=== PATIENT | female | born 1965 | race Caucasian/White ===

== ENCOUNTER 2019-07-31 11:50 | Emergency (ER) | payer OTHER ==
[2019-07-31 12:46] VITALS: BP 119/89
--- NOTE | 2019-07-31 13:02 | UC ---
Throat Pain/Nasal Timmy HPI - HPI Summary HPI Summary: Patient presents to urgent care with 7 days of progressive sinus congestion sore throat cough. Patient states his been productive but she's been swollen. No nausea vomiting. Patient states she feels tired. Patient denies sick contacts. Patient states she is not immunocompromised. Patient has taken over- the-counter going to for symptom with little improvement. Patient's does not feel short of breath. Patient states sometimes she feels wheezing when she is coughing. Patient's medications reviewed this visit. Patient quit smoking in 2014 be using a cigarette. - History of Current Complaint Chief Complaint: UCRespiratory Stated Complaint: HEAD/CHEST CONGESTION Time Seen by Provider: 07/31/19 13:01 Hx Obtained From: Patient Onset/Duration: Gradual Onset Pain Intensity: 4 - Allergies/Home Medications Allergies/Adverse Reactions: Allergies Allergy/AdvReac Type Severity Reaction Status Date / Time No Known Allergies Allergy Verified 07/31/19 12:32 Home Medications: Home Medications Bupropion HBr [Aplenzin] 522 mg PO DAILY 07/31/19 [History Confirmed 07/31/19] Dextromethorphan-Guaifenesin [Dextromethorphan/Guaifene 10-100 mg/5Ml] 1 cap PO QID 07/31/19 [History Confirmed 07/31/19] Estradiol VAG CM (NF) [Estrace VAG CM (NF)] 1 applic VAGINAL DAILY 07/31/19 [ History Confirmed 07/31/19] FLUoxetine CAP* [Prozac CAP*] 20 mg PO QID 07/31/19 [History Confirmed 07/31/19] Gabapentin 800 mg PO QID 07/31/19 [History Confirmed 07/31/19] LORazepam [Ativan 1 MG TAB] 1 mg PO BID 07/31/19 [History Confirmed 07/31/19] Pseudoephedrine HCl [Sudafed] 60 mg PO QID 07/31/19 [History Confirmed 07/31/19] cloNIDine HCl [Catapres 0.1 MG TAB] 0.1 mg PO DAILY 07/31/19 [History Confirmed 07/31/19] hydrOXYzine HCl [Hydroxyzine HCl] 50 mg PO QID 07/31/19 [History Confirmed 07/31] traZODone TAB* [Desyrel TAB*] 50 mg PO DAILY 07/31/19 [History Confirmed ] PMH/Surg Hx/FS Hx/Imm Hx Previously Healthy: Yes Psychological History: Depression - Surgical History Surgical History: Yes Surgery Procedure, Year, and Place: gastric bypass 1995, hernia repair x2, tonsil and adnoids - Family History Known Family History: Positive: Non-Contributory - Social History Lives: With Family Alcohol Use: None Alcohol Amount: 5 years ago Substance Use Type: None Substance Use Comment - Amount & Last Used: 5 years ago Smoking Status (MU): Former Smoker Have You Smoked in the Last Year: No Review of Systems All Other Systems Reviewed And Are Negative: Yes Constitutional: Positive: Fatigue Skin: Positive: Negative Eyes: Positive: Negative ENT: Positive: Sore Throat, Nasal Discharge, Sinus Congestion Respiratory: Positive: Cough, Other Gastrointestinal: Positive: Negative Genitourinary: Positive: Negative - Expiratory wheeze Is Patient Immunocompromised?: No Physical Exam - Summary Physical Exam Summary: Vital Signs Reviewed: Yes A+Ox3, no distress, tired appearing Eyes: Conjunctiva Clear, ANTOINE. EOM intact and full ENT: Hearing grossly normal TM x 2 clear, turbinates inflammed, + PND, mmoist , uvula midline, no exudate, no erythema Neck: Positive: Supple Resp: no acessory muscles, speaking full, easy sentences. Coarse, intermittent cough. ex wheeze. no rhonchi Cardiovascular: RRR nl s1, s2 no m/r CBT <2 sec abd soft + BS nt/nd no guarding, no distension Musculoskeletal Exam: TAYLOR x 4 without difficulty Strength Intact, ROM Intact Neurological: Positive: Alert, + sensation throughout Psychological: Positive: Normal Response To examiner Skin: Positive: no rash, no ecchymosis Vital Signs: Initial Vital Signs Temp 96.9 F 07/31/19 12:41 Pulse 81 07/31/19 12:41 Resp 20 07/31/19 12:41 BP 119/89 07/31/19 12:41 Pulse Ox 97 07/31/19 12:41 Diagnostics - Radiology No standard instances Radiology Interpretation Completed By: Radiologist - Patient Name: RANDALL AVENDAÑO Medical Record#: [id number] Ordering Physician: Paloma Moon MD Acct.#: [id number] : 1965 Age: 53 Sex: F Location: [facility] Exam Date: 07/31/19 1313 ADM Status: REG ER Order Information: CHEST PA & LAT 2 VWS Accession Number: [id number] CPT: 91750 INDICATION: Cough, right upper lobe rhonchi COMPARISON: There are no relevant prior studies available for comparison. TECHNIQUE: Dual-energy PA and lateral views of the chest were obtained. FINDINGS: The lungs are clear. There is no pleural effusion. The cardiomediastinal silhouette is within normal limits. A 2 subcentimeter calculi projects in the region of the left kidney. Osseous structures are unremarkable. IMPRESSION: No acute cardiopulmonary process by radiograph. __ <Electronically signed by Dimitri Murillo MD in OV> 07/31/19 1338 Dictated By: Dimitri Murillo MD Dictated Date/Time: 07/31/19 133 Transcribed Date/Time: 07/31/19 133 Copy to: CC:Paloma Moon MD; Ирина Mooney MD Imaging - [facility] Imaging [facility] [place] [address] [place] [address] ph ([phone]) ph ([phone]) ph ([phone]) This report is only to be considered final once signed by the Provider(s) as displayed in the "<Electronically Signed by >" field (s). Absence of a signature indicates the report is in a draft status and still needs to be finalized. In the event this document was created by someone other than the signing Provider, the individual initiating the document will be listed in the "Entered by:" or "Dictated by:" disla. 1 of 1 Re-Evaluation - Re-Evaluation First Eval Change: Improved Comment: improved after neb. no wheezing. will rX abx, mdi. secretion precaution. return precaution. pt comfortable and in agreement with plan Throat Pain/Nasal Course/Dx - Course Course Of Treatment: Patient presents to urgent care with progressive congestion sinus congestion cough for the last 5 days. Patient states she feels very fatigued. Patient's taken of the counter medication without relief. Patient hasn't sick contacts. On exam vital signs are stable. Patient does have a coarse cough with expiratory wheeze. Patient speaking full easy sentences. Patient's exam as well as rhinosinusitis. We'll do a chest x-ray as well as give a DuoNeb and reassessed. Patient comfortable agreement with plan. - Differential Dx/Diagnosis Provider Diagnosis: Acute bronchitis, Rhinosinusitis Discharge ED - Sign-Out/Discharge Documenting (check all that apply): Patient Departure All imaging exams completed and their final reports reviewed: No Studies - Discharge Plan Condition: Stable Disposition: HOME Prescriptions: Albuterol HFA INHALER* [Ventolin HFA Inhaler*] 2 puff INH Q4H PRN #1 mdi PRN Reason: wheeze Amoxicillin/Clavulanate TAB* [Augmentin TAB 875*] 875 mg PO BID #20 tab Patient Education Materials: Acute Bronchitis (ED), Rhinosinusitis (ED) Referrals: Jesica CONTRERAS,Ирина Shah [Primary Care Provider] - Additional Instructions: - Take antibiotics exactly as prescribed until gone -Use your albuterol puffer - 2 puffs ever 4-6 hours for the next 3 days - then as needed -Okay to alternate ibuprofen (Advil, Motrin)600mg and Tylenol (acetaminophen) every 3 hours for pain or fever. Take with food. Do NOT take for more than 4-5 days. -Stay well hydrated - avoid excess caffeine and all alcohol - eat regular, healthy meals - get plenty of restful sleep - okay to take over the counter cough medication and decongestant These infections are spread by oral secretions. Do not share eating or drinking utensils. Frequent hand washing is important. Clean items that may get your secretions on them such as cell phones, ipads, computer mouse, television remotes. Once you have been on antbiotics for 2 days, change your pillowcase and your toothbrush -Contact your doctor to arrange a follow-up appointment this week. Call your doctor, return here or go to the emergency department with any questions or concerns - Billing Disposition and Condition Condition: STABLE Disposition: Home
[2019-07-31] MEDS ORDERED: Albuterol/Ipratropium NEB.SOL* Albuterol 2.5 MG/Ipratropium 0.5 MG 3 ML INH ONE (13:13)
== END 2019-07-31 14:04 | disposition home or self-care (01) ==
LOC: UCCORT 11:50
DX: J20.9 Acute bronchitis, unspecified (principal); J32.9 Chronic sinusitis, unspecified; Z87.891 Personal history of nicotine dependence; F32.9 Major depressive disorder, single episode, unspecified
CPT/HCPCS: 71046; 99202; A9270-GY; G0463

== ENCOUNTER 2019-08-04 12:49 | Emergency (ER) | payer OTHER ==
[2019-08-04 13:40] VITALS: BP 118/78
--- NOTE | 2019-08-04 13:59 | UC ---
Throat Pain/Nasal Timmy HPI - HPI Summary HPI Summary: 53-year-old female who was diagnosed with sinusitis on July 31 and started on Augmentin. She states she continues to have sinus pressure and has not improved. She's also using albuterol inhaler for bronchitis. She denies any fever or chills. - History of Current Complaint Chief Complaint: UCRespiratory Stated Complaint: COUGH/PELAEZ Time Seen by Provider: 08/04/19 13:23 Hx Obtained From: Patient ?: No Onset/Duration: Gradual Onset Severity: Moderate Pain Intensity: 7 Cough: None - Moist cough. Associated Signs & Symptoms: Positive: Wheezing, Sinus Discomfort, Nasal Discharge - Allergies/Home Medications Allergies/Adverse Reactions: Allergies Allergy/AdvReac Type Severity Reaction Status Date / Time No Known Allergies Allergy Verified 08/04/19 13:26 Home Medications: Home Medications Acetaminophen TAB* [Tylenol TAB*] 650 mg PO Q4H PRN 08/04/19 [History Confirmed 08/04/19] Bupropion HBr [Aplenzin] 348 mg PO 08/04/19 [History] PMH/Surg Hx/FS Hx/Imm Hx - Additional Past Medical History Additional PMH: Alopecia and gastric bypass. Previously Healthy: Yes - Surgical History Surgical History: Yes Surgery Procedure, Year, and Place: gastric bypass 1995, hernia repair x2, tonsil and adnoids - Family History Known Family History: Positive: Non-Contributory - Social History Alcohol Use: None Alcohol Amount: 5 years ago Substance Use Type: None Substance Use Comment - Amount & Last Used: 5 years ago Smoking Status (MU): Former Smoker Have You Smoked in the Last Year: No Review of Systems All Other Systems Reviewed And Are Negative: Yes ENT: Positive: Nasal Discharge, Sinus Congestion, Sinus Pain/Tenderness Respiratory: Positive: Cough - Moist cough has continued Is Patient Immunocompromised?: No Physical Exam Triage Information Reviewed: Yes Appearance: Well-Appearing, No Pain Distress, Well-Nourished Vital Signs: Initial Vital Signs Temp 97.5 F 08/04/19 13:30 Pulse 82 08/04/19 13:30 Resp 24 08/04/19 13:30 BP 118/78 08/04/19 13:30 Pulse Ox 98 08/04/19 13:30 Vital Signs Reviewed: Yes Eyes: Positive: Conjunctiva Clear ENT: Positive: Pharynx normal, TMs normal, Sinus tenderness - Tenderness over the maxillary sinuses bilaterally., Uvula midline Neck: Positive: Supple, Nontender, No Lymphadenopathy Respiratory: Positive: No respiratory distress, No accessory muscle use, Rhonchi - Scattered rhonchi throughout all lung disla but with good air movement, no wheezing auscultated.. Negative: Wheezing Cardiovascular: Positive: RRR, No Murmur, Pulses Normal, Brisk Capillary Refill Musculoskeletal: Positive: Strength Intact, ROM Intact Neurological Exam: Normal Psychological Exam: Normal Skin Exam: Normal Throat Pain/Nasal Course/Dx - Course Course Of Treatment: Patient is comfortable here. She had a chest x-ray done on July 31 which was negative. She is only been on 4 days of her antibiotic and I advised her to continue that. She is to continue her albuterol inhaler 2 puffs every 4 hours as needed. I am going to add prednisone taper to the regimen and she is to follow-up with her primary care provider on Saturday if no improvement. Patient is agreeable to this plan of action. - Differential Dx/Diagnosis Provider Diagnosis: Sinusitis Discharge ED - Sign-Out/Discharge Documenting (check all that apply): Patient Departure All imaging exams completed and their final reports reviewed: No Studies - Discharge Plan Condition: Fair Disposition: HOME Prescriptions: Albuterol HFA INHALER* [Ventolin HFA Inhaler*] 2 puff INH Q4H PRN 5 Days #1 mdi PRN Reason: Wheezing predniSONE TAB* [Deltasone 10 MG TAB*] 10 mg PO DAILY 12 Days #30 tab Patient Education Materials: Sinusitis (ED) Referrals: Jesica CONTRERAS,Ирина Shah [Primary Care Provider] - Additional Instructions: Increase fluids, continue the albuterol 2 puffs every 4 hours as needed for wheezing or tight cough, continue your Augmentin. Follow-up with your primary care provider early next week if no improvement. Take the prednisone with food. - Billing Disposition and Condition Condition: FAIR Disposition: Home
== END 2019-08-04 14:11 | disposition home or self-care (01) ==
LOC: UCCORT 12:49
DX: J32.9 Chronic sinusitis, unspecified (principal); J40 Bronchitis, not specified as acute or chronic; Z87.891 Personal history of nicotine dependence
CPT/HCPCS: 99212; G0463